=== PATIENT | female | born 1990 | race Two or more races ===

== ENCOUNTER 2017-05-26 08:29 | Observation (INO) | payer SELFPAY ==
[~2017-05-26] VITALS: Ht 157.5 cm; Wt 80.3 kg
[2017-05-26 08:46] VITALS: BP 121/72
[2017-05-26] MEDS ORDERED: PREN-96 PO (09:38)
[2017-05-26 10:03] LABS: Urine Bacteria FEW /hpf (None Seen); Urine Blood 1+ /uL (Negative); Urine Mucus FEW (None Seen); Urine Specific Gravity 1.021 (1.001-1.035); Urine WBC 17 /hpf (0 - 5)
[2017-05-26] MEDS ORDERED: LACTATED RINGER'S 1,000 ML IV ONE (10:15)
[2017-05-26 11:26] LABS: Alcohol, Urine < 3.0 mg/dL (0-5); Amphetamine Screen, Urine NEGATIVE (NEGATIVE); Barbiturate Scree,Urine NEGATIVE (NEGATIVE); Benzodiazephine Screen, Urine NEGATIVE (NEGATIVE); Cannabinoid Screen, Urine NEGATIVE (NEGATIVE); Cocaine Screen, Urine NEGATIVE (NEGATIVE); Opiate Scree,Urine NEGATIVE (NEGATIVE); Phencyclidine Screen, Urine NEGATIVE (NEGATIVE)
== END 2017-05-26 11:00 | disposition home or self-care (01) | DRG 782 ==
LOC: ER 08:29 → LDRP 09:00
PROVIDERS: ADMIT Obstetrics & Gynecology; ATTEND Obstetrics & Gynecology
DX: O26.853 Spotting complicating pregnancy, third trimester (principal); O62.9 Abnormality of forces of labor, unspecified; O60.03 Preterm labor without delivery, third trimester; Z3A.30 30 weeks gestation of pregnancy
CPT/HCPCS: 59025; 76815; 80307; 81001; 81002; 99285; G0378; 96361; 96366

== ENCOUNTER 2017-07-21 11:50 | Inpatient (IN) | payer MEDICAID, OTHER ==
[2017-07-21] VITALS (9 sets, daily range): BP systolic 120–153; BP diastolic 61–91
[~2017-07-21] VITALS: Ht 157.5 cm; Wt 77.1 kg
[~2017-07-21 11:50] MED LIST: PREN-96 PO
[2017-07-21] MEDS ORDERED: LACTATED RINGER'S 1,000 ML IV ONE ×2 (12:15→12:18)
[2017-07-21] MEDS: LACTATED RINGER'S 1,000 ML IV SCH ×3 (14:00→22:29)
[2017-07-21 15:12] LABS: Basophils # (auto) 0 uL; Basophils % (auto) 0.2 % (0.0-2.0); Eosinophils # (auto) 0.1 uL; Eosinophils % (auto) 1.1 % (0.0-7.0); Hematocrit 33.1 % (36.0-46.0); Lymphocytes % (auto) 18.3 % (10.0-50.0); Mean Corpuscular Hemoglobin 28.2 pg (28.0-32.0); Mean Corpuscular Hgb Conc. 33.2 g/dL (32.0-36.0); Mean Corpuscular Volume 84.9 fL (80.0-100.0); Monocytes # (auto) 0.7 uL; Monocytes % (auto) 6.6 % (0.0-12.0); Neutrophils # (auto) 7.9 uL; Neutrophils % (auto) 73.8 % (37.0-80.0); Nucleated Red Blood Cells % 0.1 %; Platelet Count (auto) 286 10^3/uL (140-450); Red Cell Distribution Width 15.4 % (11.8-14.3); White Blood Cell 10.7 10^3/uL (4.4-10.8)
[2017-07-21 15:33] LABS: Albumin 2.1 g/dL (3.4-5.0); Bilirubin, Total 0.1 mg/dL (0.2-1.0); Calcium 8.7 mg/dL (8.5-10.1); Potassium 4.1 mmol/L (3.5-5.1)
[2017-07-21 15:38] LABS: Urine Bacteria FEW /hpf (None Seen); Urine Blood 2+ /uL (Negative); Urine Mucus FEW (None Seen); Urine Specific Gravity 1.031 (1.001-1.035); Urine WBC 55 /hpf (0 - 5)
[2017-07-21] MEDS ORDERED: TETRACAINE 1% INJ 2 ML VIAL IJ ONE (15:38)
[2017-07-21] MEDS ORDERED: ONDANSETRON HCL 4 MG/2 ML VIAL IV ONE (15:45)
[2017-07-21 15:49] LABS: INR 0.91 (0.9-1.15); Prothrombin Time 9.8 sec (9.27-12.13)
[2017-07-21] MEDS ORDERED: MORPHINE SULF(PF) 0.5MG/ML 10ML VIAL ONE (15:54)
[2017-07-21] MEDS ORDERED: PHENYLEPHRINE HCL 10 MG/ML VL ONE (15:57)
[2017-07-21] MEDS ORDERED: ePHEDrine SULFATE 50 MG/ML AMP ONE (15:57)
[2017-07-21] MEDS ORDERED: OXYTOCIN 10 UNIT/ML 10ML VIAL ONE (15:57)
[2017-07-21] MEDS ORDERED: ceFAZolin 1GM VL ONE (15:59)
[2017-07-21 16:12] LABS: Barbiturate Scree,Urine NEGATIVE (NEGATIVE); Benzodiazephine Screen, Urine NEGATIVE (NEGATIVE); Cannabinoid Screen, Urine POSITIVE (NEGATIVE); Cocaine Screen, Urine NEGATIVE (NEGATIVE); Opiate Scree,Urine NEGATIVE (NEGATIVE); Phencyclidine Screen, Urine NEGATIVE (NEGATIVE)
[2017-07-21 16:21] LABS: Amphetamine Screen, Urine NEGATIVE (NEGATIVE)
[2017-07-21] MEDS ORDERED: MIDAZOLAM HCL 1MG/1ML-2 ML VIAL ONE (16:39)
[2017-07-21] MEDS ORDERED: METOCLOPRAMIDE HCL 5MG/ml INJ 2ml VIAL ONE (16:50)
[2017-07-21] MEDS ORDERED: ONDANSETRON HCL 4 MG/2 ML VIAL ONE (16:50)
[2017-07-21] MEDS ORDERED: KETOROLAC TROMETH 30 MG/ML 1ML VIAL IV PRN (17:15)
[2017-07-21] MEDS ORDERED: NALOXONE HCL 0.4 MG/ML VIAL IV PRN (17:15)
[2017-07-21] MEDS ORDERED: diphenhdrAMINE HCL 50 MG/1 ML VL IV PRN (17:15)
[2017-07-21] MEDS ORDERED: ONDANSETRON HCL 4 MG/2 ML VIAL IV PRN ×2 (17:15→17:30)
[2017-07-21] MEDS ORDERED: MORPHINE SULF INJ 2 MG/ML SYRINGE 1ML IV PRN (17:30)
[2017-07-21] MEDS: KETOROLAC TROMETH 30 MG/ML 1ML VIAL IV SCH ×2 (18:00→23:25)
[2017-07-22] VITALS (9 sets, daily range): BP systolic 110–140; BP diastolic 67–78
[2017-07-22] MEDS ORDERED: LACTATED RINGER'S 1,000 ML IV ONE (00:30)
[2017-07-22] MEDS: ceFAZolin 1GM/50ML 50 ML IV SCH ×3 (00:30→16:00)
[2017-07-22] MEDS: LACTATED RINGER'S 1,000 ML IV SCH ×2 (04:56→19:25)
[2017-07-22 07:18] LABS: Basophils # (auto) 0 uL; Basophils % (auto) 0.2 % (0.0-2.0); Eosinophils # (auto) 0 uL; Eosinophils % (auto) 0.2 % (0.0-7.0); Hematocrit 28.8 % (36.0-46.0); Hemoglobin 9.5 g/dL (12.2-16.2); Lymphocytes # (auto) 1.4 uL; Lymphocytes % (auto) 14.7 % (10.0-50.0); Mean Corpuscular Hemoglobin 28.4 pg (28.0-32.0); Mean Corpuscular Hgb Conc. 33.1 g/dL (32.0-36.0); Mean Corpuscular Volume 85.7 fL (80.0-100.0); Monocytes # (auto) 0.6 uL; Monocytes % (auto) 6.5 % (0.0-12.0); Neutrophils # (auto) 7.5 uL; Neutrophils % (auto) 78.4 % (37.0-80.0); Platelet Count (auto) 205 10^3/uL (140-450); Red Blood Cells 3.36 10^6/uL (4.0-5.20); Red Cell Distribution Width 15.6 % (11.8-14.3); White Blood Cell 9.5 10^3/uL (4.4-10.8)
[2017-07-22] MEDS ORDERED: BISACODYL 10 MG RECT SUPP PR PRN (08:30)
[2017-07-22] MEDS: IBUPROFEN 800 MG TAB PO PRN ×2 (09:09→17:07)
[2017-07-22] MEDS: DOCUSATE SOD 100 MG CAP PO SCH ×2 (09:09→22:30)
[2017-07-22] MEDS: DOCUSATE CALCIUM 240 MG CAP PO SCH (09:09)
[2017-07-22] MEDS ORDERED: fentaNYL CITRATE 100 MCG/2 ML VL IV ONE (10:00)
[2017-07-22] MEDS: SIMETHICONE 80 MG CHEWABLE TABLET PO SCH ×3 (12:00→22:30)
[2017-07-22] MEDS ORDERED: TETANUS-DIPTH-ACEL PERTUSSIS 0.5ML SYRG IM ONE (13:15)
[2017-07-22] MEDS ORDERED: ACETAMINOPHEN 325 MG TAB PO PRN (17:00)
[2017-07-22] MEDS: HYDROcodone-ACET 5/325MG TAB PO PRN (23:26)
[2017-07-23] MEDS: IBUPROFEN 800 MG TAB PO PRN ×3 (00:55→16:33)
[2017-07-23 03:00] VITALS: BP 121/78
[2017-07-23] MEDS: HYDROcodone-ACET 5/325MG TAB PO PRN ×4 (04:15→22:24)
[2017-07-23] MEDS: SIMETHICONE 80 MG CHEWABLE TABLET PO SCH ×4 (05:53→22:24)
[2017-07-23 06:30] VITALS: BP 119/72
[2017-07-23] MEDS: LACTATED RINGER'S 1,000 ML IV SCH (09:21)
[2017-07-23] MEDS: DOCUSATE SOD 100 MG CAP PO SCH ×2 (10:00→22:24)
[2017-07-23] MEDS: DOCUSATE CALCIUM 240 MG CAP PO SCH (10:00)
[2017-07-23 11:00] VITALS: BP 123/71
[2017-07-23 15:00] VITALS: BP 132/82
[2017-07-23 23:00] VITALS: BP 133/82
[2017-07-24] MEDS: IBUPROFEN 800 MG TAB PO PRN (00:30)
[2017-07-24 03:57] VITALS: BP 136/70
[2017-07-24] MEDS: HYDROcodone-ACET 5/325MG TAB PO PRN ×2 (04:15→06:40)
[2017-07-24] MEDS: SIMETHICONE 80 MG CHEWABLE TABLET PO SCH (06:40)
[2017-07-24 06:45] VITALS: BP 131/83
[2017-07-24] MEDS ORDERED: MEASLES, MUMPS & RUBELLA VAC(MMRII) 0.5ML SC ONE (08:00)
[2017-07-24 11:01] LABS: RPR Non Reactive (Non Reactive); Rubella Antibodies, IgG <0.90 index (Immune >0.99)
== END 2017-07-24 09:00 | disposition home or self-care (01) | DRG 540 ==
LOC: LDRP 11:50 → OBSVTOIN 14:20 → LDRP 18:19
PROVIDERS: ADMIT Specialist; ATTEND Specialist
PROC: 0DNU0ZZ Release Omentum, Open Approach (ICD-10-PCS; 2017-07-21)
PROC: 10D00Z1 Extraction of Products of Conception, Low, Open Approach (ICD-10-PCS; principal; 2017-07-21 16:12)
DX: O34.211 Maternal care for low transverse scar from previous cesarean delivery (principal); O41.8X30 Other specified disorders of amniotic fluid and membranes, third trimester, not applicable or unspecified; O36.63X0 Maternal care for excessive fetal growth, third trimester, not applicable or unspecified; O76 Abnormality in fetal heart rate and rhythm complicating labor and delivery; Z37.0 Single live birth; Z3A.38 38 weeks gestation of pregnancy; O99.613 Diseases of the digestive system complicating pregnancy, third trimester; K66.0 Peritoneal adhesions (postprocedural) (postinfection)
CPT/HCPCS: 36415; 51702; 59025; 76818; 80053; 80307; 81001; 81002; 85025; 85610; 85730; 86592; 86762; 86850; 86900; 86901; 87340; 90471; 90715; 96365; 96366; 96372; 96374; 96375; G0378; J0690; J1885; J2250; J2405; J2590

== ENCOUNTER 2020-05-20 11:31 | Emergency (ER) | payer MEDICAID, OTHER ==
[~2020-05-20] VITALS: Ht 157.5 cm; Wt 81.6 kg
[2020-05-20 11:32] VITALS: BP 126/96
== END 2020-05-20 13:05 | disposition home or self-care (01) ==
LOC: ER 11:31
DX: H60.91 Unspecified otitis externa, right ear (principal)

== ENCOUNTER 2022-11-26 09:25 | Observation (INO) | payer OTHER ==
[~2022-11-26] VITALS: Ht 30.5 cm; Wt 0.5 kg
[2022-11-26] MEDS ORDERED: LACTATED RINGER'S 1,000 ML IV ONE (10:00)
== END 2022-11-26 12:36 | disposition home or self-care (01) ==
LOC: UNDOADMOB 09:25 → LDRP 09:25
PROVIDERS: ADMIT Obstetrics & Gynecology; ATTEND Obstetrics & Gynecology
DX: O60.03 Preterm labor without delivery, third trimester (principal); O24.419 Gestational diabetes mellitus in pregnancy, unspecified control; O26.893 Other specified pregnancy related conditions, third trimester; R11.0 Nausea; O62.9 Abnormality of forces of labor, unspecified; R19.7 Diarrhea, unspecified; Z3A.31 31 weeks gestation of pregnancy; Z98.891 History of uterine scar from previous surgery
CPT/HCPCS: 59025; 81002; 82948; 82962; 96360; G0378

== ENCOUNTER 2024-01-15 09:00 | Emergency (ER) | payer MEDICAID, OTHER ==
[~2024-01-15] VITALS: Ht 157.5 cm; Wt 90.9 kg
--- NOTE | 2024-01-15 09:54 | ED.PDOC ---
Eye-HPI HPI Comments A 33 YEAR OLD FEMALE PRESENTS TO THE ED WITH COMPLAINT OF LEFT EAR PAIN AND CONGESTION. PATIENT STATES SHE HAS BEEN EXPERIENCING LEFT EAR PAIN AND NASAL CONGESTION FOR THE PAST 3 DAYS. PATIENT DENIES FEVER, CHILLS, SHORTNESS OF BREATH, CHEST PAIN, ABDOMINAL PAIN, NAUSEA, VOMITING, HEADACHE, OR OTHER COMPLAINTS. NO OTHER SYMPTOMS OR MODIFYING FACTORS AT THIS TIME. PATIENT IS ALERT, ORIENTED X 4, AND HAS STEADY GAIT. Chief Complaint: Flu like Time Seen by MD: 09:31 Primary Care Provider: DR AUGUSTINE Reviewed Notes: Nurses Notes, Medications, Allergies Allergies: Coded Allergies: NO KNOWN ALLERGIES (Unverified , 05/26/17) Home Meds Active Scripts Ibuprofen (Ibuprofen) 800 Mg Tab, 1 TAB PO TID, #30 TAB Prov:NORMA MASON 01/15/24 Amoxicillin Trihydrate (Amoxicillin) 875 Mg Tab, 1 TAB PO BID, #20 TAB Prov:NORMA MASON 01/15/24 Reported Medications Vit W/ Ferrous Fumara ( One Daily) Daily Tab, 1 TAB PO DAILY, #90 TAB 3 Refills 05/26/17 Information Source: Patient Mode of Arrival: Ambulatory Timing: Days Duration: Since onset, Days Prehospital treatment: None Quality: Pain, Red Lids: Normal Conjunctiva: Normal Cornea: Normal Pupils: Normal EOM: Normal Fundus: Normal Slit lamp exam: Normal Anterior chamber: Normal Mouth: Normal ENT Ear Exam: Normal, Red, Bulging, Dull, Normal Nose: Normal Sinuses: Normal Oropharynx: Normal Onset: Spontaneous Throat Exposed to: None History of: None Last Tetanus: Unknown Modifying factors: Nothing Associated signs and symptoms: Nasal Symptoms, Ear Pain Past Medical History PAST MEDICAL HISTORY: Denies Surgical History: Denies all surgeries KENNEL ASSISTANT History: Denies all KENNEL ASSISTANT Hx Family History Family History: Reviewed,noncontributory to illness Social History Smoker: Non-Smoker Alcohol: Denies ETOH Use Drugs: Denies Drug Use Lives In: Home Constitutional: denies: chills, diaphoresis, fatigue, fever, malaise, sweats, weakness, others EENTM: reports: ear pain (LEFT EAR PAIN), ear ringing, nose congestion; denies: blurred vision, double vision, ear bleeding, ear discharge, ear drainage, eye pain, eye redness, hearing loss, mouth pain, mouth swelling, nasal discharge, nose bleeding, nose pain, photophobia, tearing, throat pain, throat swelling, voice changes, others Respiratory: denies: cough, hemoptysis, orthopnea, SOB at rest, shortness of breath, SOB with excertion, stridor, wheezing, others Cardiovascular: denies: chest pain, dizzy spells, diaphoresis, Dyspnea on exertion, edema, irregular heart beat, left arm pain, lightheadedness, palpitations, PND, syncope, others Gastrointestinal: denies: abdomen distended, abdominal pain, blood streaked bowels, constipated, diarrhea, dysphagia, difficulty swallowing, hematemesis, melena, nausea, poor appetite, poor fluid intake, rectal bleeding, rectal pain, vomiting, others Genitourinary: denies: abnormal vagina bleeding, burning, dyspareunia, dysuria, flank pain, frequency, hematuria, incontinence, pain, , vagina discharge, urgency, others Neurological: denies: dizziness, fainting, headache, left sided numbness, left sided weakness, numbness, paresthesia, pre-existing deficit, right sided numbness, right sided weakness, seizure, speech problems, tingling, tremors, weakness, others Musculoskeletal: denies: back pain, gout, joint pain, joint swelling, muscle pain, muscle stiffness, neck pain, others Integumetry: denies: bruises, change in color, change in hair/nails, dryness, laceration, lesions, lumps, rash, wounds, others Allergic/Immunocompromised: denies: Difficulty Healing, Frequent Infections, Hives, Itching, others Hematologic/Lymphatic: denies: anemia, blood clots, easy bleeding, easy bruising, swollen glands, others Endocrine: denies: excessive hunger, excessive sweating, excessive thirst, excessive urination, flushing, intolerance to cold, intolerance to heat, unexplained weight gain, unexplained weight loss, others Psychiatric: denies: anxiety, bipolar disorder, depression, hopeless, panic disorder, schizophrenia, sleepless, suicidal, others All Other Systems: Reviewed and Negative Physical Exam General Appearance: No Apparent Distress, Obese HEENT: PERRL/EOMI, Pharynx Normal, TM Abnormal (L) (ERYTHEMA AND DULL OF LEFT TM WITH MILD EFFUSION OF LEFT EAR CANAL. ) Neck: Full Range of Motion, Non-Tender, Normal, Normal Inspection Respiratory: Chest Non-Tender, Lungs Clear, No Accessory Muscle Use, No Respiratory Distress, Normal Breath Sounds Cardiovascular: No Edema, No JVD, No Murmur, No Gallop, Normal Peripheral Pulses, Regular Rate/Rhythm Breast Exam: Deferred Gastrointestinal: No Organomegaly, Non Tender, No Pulsatile Mass, Normal Bowel Sounds, Soft Genitalia: Deferred Pelvic: Deferred Rectal: Deferred Extremities: No calf tenderness, Normal capillary refill, Normal inspection, Normal range of motion, Non-tender, No pedal edema Musculoskeletal : Apperance: Normal Neurologic: Alert, x ray developer II-XII nml as Tested, No Motor Deficits, Normal Affect, Normal Mood, No Sensory Deficits Cerebellar Function: Normal Reflexes: Normal Skin: Dry, Normal Color, Warm Peripheral Pulses: 2+ carotid (R), 2+ carotid (L) Lymphatic: No Adenopathy Was a procedure done? Was a procedure done?: No EENT DIFF Eye: N/A Ear: Cerumen Impaction, Otitis Externa, Otitis Media, Dental, Sinusitis Nose: N/A Mouth: N/A Sore Throat: N/A X-Ray, Labs, Meds, VS Vital Signs Date Time Temp Pulse Resp B/P (MAP) Pulse Ox O2 Delivery O2 Flow Rate FiO2 01/15/24 09:24 16 98 Room Air* 0 21 01/15/24 09:24 98.3 95 16 121/74 (90) 98 X-Ray, Labs, Meds, VS Comment EXTERNAL NOTES: NONE LABS ORDERED: NONE REVIEWED AND INTERPRETED RESULTS: NONE IMAGING ORDERED: NONE INDEPENDENT HISTORIANS: NONE TREATMENTS ORDERED: NONE PATIENT'S CASE AND RESULTS HAVE BEEN DISCUSSED WITH THE ED ATTENDING PHYSICIAN AND THEY AGREE WITH MY PLAN OF CARE. I HAVE INSTRUCTED THE PATIENT TO FOLLOW UP WITH THEIR PCP IN 1-2 DAYS. THE PATIENT FULLY UNDERSTANDS THEIR RESULTS AND ARE AWARE THEY NEED TO FOLLOW UP WITH THEIR PCP FOR FURTHER EVALUATION IF THEIR SYMPTOMS PERSIST. Time of 1ST Reevaluation: 10:03 Reevaluation 1ST: Improved Patient Education/Counseling: Diagnosis, Treatment, Need For Follow Up Family Education/Counseling: Diagnosis, Treatment, Need For Follow Up Medical Screening: No EMC Exist At This Time Departure 1 Departure Time of Disposition: 10:10 Impression: Primary Impression: Otitis media of left ear Qualified Codes: H65.02 - Acute serous otitis media, left ear Disposition: 01 HOME / SELF CARE / HOMELESS Condition: Stable Additional Instructions: FOLLOW UP WITH PCP IN 1-2 DAYS. TAKE MEDICATIONS PRESCRIBED. RETURN TO ED FOR ANY NEW OR WORSENING SYMPTOMS. e-Prescriptions Ibuprofen (Ibuprofen) 800 Mg Tab 1 TAB PO TID, #30 TAB Prov: NORMA MASON 01/15/24 Amoxicillin Trihydrate (Amoxicillin) 875 Mg Tab 1 TAB PO BID, #20 TAB Prov: NORMA MASON 01/15/24 Discharged With: Self Critical Care Note Critical Care Time?: No Stability Stability form required: No I personally scribed for NORMA MASON ([email or web address]) on 01/15/24 at 09:54. Electronically submitted by Parviz Fry ([email or web address]). NORMA MASON Jan 15, 2024 09:54
[2024-01-15 10:00] VITALS: BP 121/74; PULSE 95; RESP 16; TEMP 98.3; O2SAT 98
[2024-01-15] MEDS ORDERED: IBUP-1456 PO (10:01)
[2024-01-15] MEDS ORDERED: AMOX875T3 PO (10:01)
== END 2024-01-15 10:14 | disposition home or self-care (01) ==
LOC: ER 09:00
DX: H66.92 Otitis media, unspecified, left ear (principal); Z79.1 Long term (current) use of non-steroidal anti-inflammatories (NSAID); Z79.899 Other long term (current) drug therapy